=== PATIENT | male | born 1990 | race Hispanic/Latino ===

== ENCOUNTER 2016-12-29 21:42 | Emergency (ER) | payer OTHER ==
[~2016-12-29] VITALS: Ht 182.9 cm; Wt 90.8 kg
[~2016-12-29 21:42] MED LIST: AMOXICILLIN500 MG PO; AMOXICILLIN875 MG OR; BENADRYL25 M1 OR; DIFLUCAN150 MG PO; EC-NAPROSYN500 MG PO; ELIMITE5 % EX; ERYTHROM ETH400 MG OR; FLEXERIL PO; HYDROXYZ HCL25 MG PO; KEFLEX500 M1 PO; LAMISIL AT1 % EX; LORTAB 1010 MG PO; NAPROSYN500 MG OR; NAPROSYN500 MG PO; NO MEDS; NYSTATIN100000 M3 EX; ROBITUSSIN AC OR; STROMECTOL3 MG OR; ULTRAM50 MG OR
[2016-12-29] MEDS ORDERED: AMOXICILLIN500 MG PO (22:22)
[2016-12-29] MEDS ORDERED: LORTAB 10-325 M1 TAB PO (22:22)
[2016-12-29 22:35] VITALS: BP 122/75
== END 2016-12-29 22:42 | disposition home or self-care (01) | DRG 159 ==
LOC: ED 21:42
DX: K04.7 Periapical abscess without sinus (principal); K03.81 Cracked tooth

== ENCOUNTER 2017-10-11 19:27 | Emergency (ER) | payer BC ==
[~2017-10-11] VITALS: Ht 182.9 cm; Wt 98.4 kg
[~2017-10-11 19:27] MED LIST changes: +LORTAB 10-325 M1 TAB PO
[2017-10-11 20:20] VITALS: BP 116/71
== END 2017-10-11 20:20 | disposition home or self-care (01) | DRG 880 ==
LOC: ED 19:27
DX: F41.9 Anxiety disorder, unspecified (principal)

== ENCOUNTER 2017-11-20 23:42 | Emergency (ER) | payer BC ==
[~2017-11-20] VITALS: Ht 182.9 cm; Wt 96.6 kg
[2017-11-21 01:10] LABS: URINE BILIRUBIN - DIPSTICK NEGATIVE (NEGATIVE); URINE BLOOD DIPSTICK NEGATIVE (NEGATIVE); URINE COLOR YELLOW; URINE GLUCOSE - DIPSTICK NEGATIVE (NEGATIVE); URINE KETONE NEGATIVE (NEGATIVE); URINE NITRITE - DIPSTICK NEGATIVE (Negative); URINE PH 6.5 (4.5-8.0); URINE PROTEIN - DIPSTICK NEGATIVE (NEG-TRACE); URINE UROBILINOGEN - DIPSTICK 0.2 E.U./dL (0.2)
[2017-11-21 01:16] LABS: URINE CLARITY CLEAR; URINE LEUK ESTERASE SMALL (NEGATIVE)
[2017-11-21 01:23] LABS: URINE RBC 0-2 RBC/hpf (0-5); URINE WBC 0-2 WBC/hpf (0-5)
[2017-11-21 01:25] LABS: HEMATOCRIT 42.5 % (39.0-50.0); HEMOGLOBIN 14.6 g/dl (14.0-18.0); IMMATURE GRANULOCYTES 1.2 % (0.0-5.0); MEAN CELL VOLUME 88.5 fL CALC (80.0-100.0); MEAN CORPUSCULAR HGB 30.4 pG CALC (26.0-32.0); MEAN CORPUSCULAR HGB CONC 34.4 g/L CALC (32.0-36.0); NEUT# 3.71 thou/uL (1.82-7.42); RED BLOOD COUNT 4.8 mill/uL (4.70-6.10); RED CELL DISTRI WIDTH 12.5 % (11.5-15.5)
[2017-11-21 02:04] LABS: ALBUMIN 4.7 g/dL (3.2-5.0); ALKALINE PHOSPHATASE 57 u/l (38-126); ANION GAP 16 (6-22 (CALC)); BILIRUBIN, TOTAL 0.3 mg/dL (0.0-1.4); BUN 11 mg/dL (9-20); BUN/CREATININE RATIO 13 (12-20 (CALC)); CARBON DIOXIDE 27 mmol/l (22-30); CHLORIDE 102 mmol/l (95-108); CREATININE 0.9 mg/dL (0.7-1.3); GFR > 60 ML/MIN (>=60 (CALC)); GFR FOR AFR.AMER. > 60 ML/MIN (>=60 (CALC)); SGPT/ALT 75 u/l (21-72); SODIUM 141 mmol/l (137-146)
[2017-11-21 02:06] LABS: SGOT/AST 72 u/l (17-59)
[2017-11-21] MEDS ORDERED: ORPHENADRINE100 MG PO (03:11)
[2017-11-21] MEDS ORDERED: MOTRIN800 MG PO (03:11)
[2017-11-21 03:14] VITALS: BP 129/79
== END 2017-11-21 03:24 | disposition home or self-care (01) | DRG 552 ==
LOC: ED 23:42
PROVIDERS: Emergency Medicine
DX: M54.6 Pain in thoracic spine (principal)
CPT/HCPCS: Q9967

== ENCOUNTER 2017-11-21 18:44 | Emergency (ER) | payer BC ==
[~2017-11-21] VITALS: Ht 182.9 cm; Wt 96.4 kg
[~2017-11-21 18:44] MED LIST changes: +MOTRIN800 MG PO; +ORPHENADRINE100 MG PO
[2017-11-21 19:48] LABS: INFLUENZA A NONE DETECTED (NONE DETECT); INFLUENZA B NONE DETECTED (NONE DETECT)
[2017-11-21 20:27] VITALS: BP 143/62
== END 2017-11-21 20:27 | disposition home or self-care (01) | DRG 880 ==
LOC: ED 18:44
PROVIDERS: Emergency Medicine
DX: F41.9 Anxiety disorder, unspecified (principal); R50.9 Fever, unspecified; Z63.4 Disappearance and death of family member

== ENCOUNTER 2022-09-06 00:37 | Emergency (ER) | payer OTHER ==
[~2022-09-06] VITALS: Ht 182.9 cm; Wt 95.0 kg
[2022-09-06 01:08] LABS: BASO% 0.4 % (0-3); EOS% 0.7 % (0-8); HEMATOCRIT 43.7 % (39.0-50.0); HEMOGLOBIN 14.4 g/dl (14.0-18.0); IMMATURE GRANULOCYTES 0.5 % (0.0-5.0); MEAN CELL VOLUME 88.8 fL CALC (80.0-100.0); MEAN CORPUSCULAR HGB 29.3 pG CALC (26.0-32.0); MONO% 9.5 % (2-13); NEUT# 5.65 thou/uL (1.82-7.42); NEUT% 67.9 % (42-76); RED BLOOD COUNT 4.92 mill/uL (4.70-6.10); RED CELL DISTRI WIDTH 11.9 % (11.5-15.5)
[2022-09-06 02:30] VITALS: BP 128/78
== END 2022-09-06 02:30 | disposition home or self-care (01) | DRG 153 ==
LOC: ED 00:37
PROVIDERS: Family Medicine
DX: J02.8 Acute pharyngitis due to other specified organisms (principal)